=== PATIENT | female | born 1940 | race Caucasian/White ===

== ENCOUNTER 2018-10-14 19:51 | Emergency (ER) | payer MEDICARE, BC ==
[2018-10-14] MEDS ORDERED: Ondansetron 4 MG/2 ML SDV IVPUSH ONE (21:32)
[2018-10-14] MEDS ORDERED: Sodium Chloride 0.9% 1,000 ML IV SCH (21:45)
--- NOTE | 2018-10-14 22:03 | EDM.PDOC ---
ED HPI GENERAL MEDICAL PROBLEM - General Chief Complaint: Gastrointestinal Problem Stated Complaint: NAUSEA,VOMITING Time Seen by Provider: 10/14/18 21:25 Source of Information: Reports: Patient, Family History Limitations: Reports: No Limitations - History of Present Illness INITIAL COMMENTS - FREE TEXT/NARRATIVE: 78-year-old female who has had loose stools and intermittent vomiting for the past 48 hours. No pain, no fever or chills. She has chronic recurring nausea but it's usually very transient. No exposure to illness and no recent travel, no recent antibiotic. She had 3 episodes of diarrhea today and had emesis prior to leaving for the emergency room one hour ago. She has just minimal nausea at this time otherwise feels fine. She has not seen any blood in the stool, she thinks she may have a small amount of bloody emesis earlier today. History of cholecystectomy. Duration: Day(s): (2 days) Associated Symptoms: Reports: Loss of Appetite, Nausea/Vomiting, Other (Diarrhea ). Denies: Confusion, Chest Pain, Cough, Fever/Chills - Related Data Allergies Allergy/AdvReac Type Severity Reaction Status Date / Time No Known Allergies Allergy Verified 10/14/18 21:09 Home Meds: Home Meds Aspirin [Low Dose Aspirin EC] 1 tab PO DAILY 11/23/16 [History] Losartan [Cozaar] 1 tab PO DAILY 11/23/16 [History] Metoprolol Succinate [Toprol XL] 1 tab PO DAILY 11/23/16 [History] Sertraline [Zoloft] 1 tab PO DAILY 11/23/16 [History] Simvastatin [Zocor] 1 tab PO BEDTIME 11/23/16 [History] Donepezil HCl [Aricept] 10 mg PO BEDTIME 10/14/18 [History] Fluticasone/Vilanterol [Breo Ellipta 100-25 MCG Inhalation Kit] 1 dose IH DAILY 10/14/18 [History] Ipratropium [Atrovent HFA] 2 puff IH TID 10/14/18 [History] Past Medical History Cardiovascular History: Reports: High Cholesterol, Hypertension Respiratory History: Reports: COPD, Sleep Apnea Other Respiratory History: c-pap not using Gastrointestinal History: Reports: Cholelithiasis Other Neuro History: 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 Denies: Fever, Chills HEENT: Reports: No Symptoms Respiratory: Denies: Shortness of Breath Cardiovascular: Denies: Chest Pain GI/Abdominal: Reports: Diarrhea, Nausea, Vomiting. Denies: Abdominal Pain, Constipation : Reports: No Symptoms Skin: Reports: No Symptoms Neurological: Denies: Headache Psychiatric: Reports: No Symptoms ED EXAM, GI/ABD - Physical Exam Exam: See Below Exam Limited By: No Limitations General Appearance: Alert, No Apparent Distress Eyes: Bilateral: Normal Appearance Respiratory/Chest: No Respiratory Distress, Lungs Clear Cardiovascular: Regular Rate, Rhythm GI/Abdominal Exam: Soft, Non-Tender, Other (Somewhat decreased bowel sounds) Neurological: Alert, Oriented Psychiatric: Normal Affect, Normal Mood Skin Exam: Warm, Dry Course - Vital Signs Last Recorded V/S: Last Vital Signs Temp 99.1 F 10/14/18 21:08 Pulse 88 10/14/18 21:08 Resp 16 10/14/18 21:08 BP 149/67 H 10/14/18 21:08 Pulse Ox 92 L 10/14/18 21:08 - Orders/Labs/Meds Labs: Laboratory Tests 10/14/18 10/14/18 Range/Units 21:48 21:48 WBC 9.9 (4.5-11.0) K/uL RBC 4.77 (3.30-5.50) M/uL Hgb 14.5 (12.0-15.0) g/dL Hct 46.3 (36.0-48.0) % MCV 97 (80-98) fL MCH 30 (27-31) pg MCHC 31 L (32-36) % Plt Count 230 (150-400) K/uL Neut % (Auto) 88 H (36-66) % Lymph % (Auto) 7 L (24-44) % [place] % (Auto) 5 (2-6) % Eos % (Auto) 0 L (2-4) % Baso % (Auto) 0 (0-1) % Sodium 139 L (140-148) mmol/L Potassium 4.3 (3.6-5.2) mmol/L Chloride 103 (100-108) mmol/L Carbon Dioxide 25 (21-32) mmol/L Anion Gap 15.3 H (5.0-14.0) mmol/L BUN 24 H (7-18) mg/dL Creatinine 1.5 H (0.6-1.0) mg/dL Est Cr Clr Drug Dosing 25.81 mL/min Estimated GFR (MDRD) 34 L (>60) Glucose 138 H (74-106) mg/dL Calcium 9.3 (8.5-10.1) mg/dL Total Bilirubin 0.4 (0.2-1.0) mg/dL AST 18 (15-37) U/L ALT 20 (12-78) U/L Alkaline Phosphatase 97 (46-116) U/L Total Protein 7.8 (6.4-8.2) g/dL Albumin 3.2 L (3.4-5.0) g/dL Globulin 4.6 H (2.3-3.5) g/dL Albumin/Globulin Ratio 0.7 L (1.2-2.2) Meds: Medications Discontinued Medications Generic Name Dose Route Start Last Admin Trade Name Freq PRN Reason Stop Dose Admin Sodium Chloride 1,000 mls @ 1,000 mls/hr 10/14/18 21:45 10/14/18 21:59 Normal Saline IV 1,000 mls/hr ASDIRECTED ELVIRA Administration Ondansetron HCl 4 mg 10/14/18 21:32 10/14/18 21:59 Zofran IVPUSH 10/14/18 21:33 4 mg ONETIME ONE Administration - Re-Assessments/Exams Free Text/Narrative Re-Assessment/Exam: 10/14/18 22:02 An IV was started, the patient was given 4 mg of IV Zofran and 1 L of normal saline while awaiting results of a CBC and CMP. 10/14/18 22:36 Patient remained comfortable while in the emergency room without any additional emesis or diarrhea. CBC was normal, CMP showed evidence of dehydration with elevated BUN, creatinine and decreased GFR. Otherwise reassuring. Patient was given a full liter of normal saline, and discharged with 5 additional doses of sublingual Zofran. She can return if symptoms persist over the next several days. Departure - Departure Time of Disposition: 23:01 Disposition: Home, Self-Care 01 Clinical Impression: Gastroenteritis - Discharge Information Instructions: Dehydration, Adult, [id number] Referrals: Sania Zapata MD [Primary Care Provider] - Forms: ED Department Discharge Care Plan Goals: Increase activity and diet as tolerated. Concentrate on fluids and avoid dehydration. Use Zofran under your tongue up to 3 times a day for persistent nausea and vomiting. Consider rechecking in 2-3 days if not improving satisfactorily, or return anytime if worsening despite treatment.
== END 2018-10-14 23:02 | disposition home or self-care (01) ==
LOC: JP.ED 19:51
DX: K52.9 Noninfective gastroenteritis and colitis, unspecified (principal); I10 Essential (primary) hypertension; Z79.899 Other long term (current) drug therapy; Z98.890 Other specified postprocedural states; Z90.49 Acquired absence of other specified parts of digestive tract; Z79.82 Long term (current) use of aspirin; Z87.891 Personal history of nicotine dependence
CPT/HCPCS: 36415; 80053; 85025; 96361; 96374; 99283; J2405; J7030; 99284

== ENCOUNTER 2019-02-10 11:44 | Emergency (ER) | payer MEDICARE, BC ==
--- NOTE | 2019-02-10 15:52 | EDM.PDOC ---
ED HPI GENERAL MEDICAL PROBLEM - General Chief Complaint: Upper Extremity Injury/Pain Stated Complaint: SWOLLEN LT HAND, PAIN Time Seen by Provider: 02/10/19 15:52 Source of Information: Reports: Patient History Limitations: Reports: No Limitations - History of Present Illness INITIAL COMMENTS - FREE TEXT/NARRATIVE: pt arrived stating that she has a painful left hand. She has not had a injury. This started to swell about 2 days ago. The M_P joint of the middle finger is swollen and is tender. Onset: Other ( started 2 days ago) Duration: Hour(s): Location: Reports: Upper Extremity, Left Associated Symptoms: Reports: No Other Symptoms Left Hand Pain Score (Numeric/FACES): 1 - Related Data Allergies Allergy/AdvReac Type Severity Reaction Status Date / Time No Known Allergies Allergy Verified 02/10/19 14:29 Home Meds: Home Meds Losartan [Cozaar] 1 tab PO DAILY 11/23/16 [History] Metoprolol Succinate [Toprol XL] 1 tab PO DAILY 11/23/16 [History] Sertraline [Zoloft] 1 tab PO DAILY 11/23/16 [History] Donepezil HCl [Aricept] 10 mg PO BEDTIME 10/14/18 [History] Fluticasone/Vilanterol [Breo Ellipta 100-25 MCG Inhalation Kit] 1 dose IH DAILY 10/14/18 [History] Ipratropium [Atrovent HFA] 2 puff IH TID 10/14/18 [History] Past Medical History Cardiovascular History: Reports: High Cholesterol, Hypertension Respiratory History: Reports: COPD, Sleep Apnea Other Respiratory History: c-pap not using Gastrointestinal History: Reports: Cholelithiasis Other Neuro History: 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 Psychiatric History: Reports: Alzheimers Disease - Past Surgical History HEENT Surgical History: Reports: Adenoidectomy, Tonsillectomy GI Surgical History: Reports: Cholecystectomy Social & Family History - Tobacco Use Smoking Status *Q: Former Smoker Used Tobacco, but Quit: Yes Month/Year Tobacco Last Used: 15 years - Caffeine Use Caffeine Use: Reports: None - Recreational Drug Use Recreational Drug Use: No Review of Systems - Review of Systems Review Of Systems: See Below Constitutional: Reports: No Symptoms Eyes: Reports: No Symptoms Ears: Reports: No Symptoms Nose: Reports: No Symptoms Mouth/Throat: Reports: No Symptoms Respiratory: Reports: No Symptoms Cardiovascular: Reports: No Symptoms GI/Abdominal: Reports: No Symptoms Musculoskeletal: Reports: Other (painful left hand. ) ED EXAM, GENERAL - Physical Exam Exam: See Below Free Text/Narrative:: pt arrived with pain in left hand. This swollen and tender by the middle m-p joint. Exam Limited By: No Limitations General Appearance: Alert, Anxious Ears: Normal TMs Nose: Normal Inspection Extremities: Other (left hand is swollen and tender at the level of the left m-p --middle joint. ) Neurological: Alert, Oriented, Normal Cognition Course - Vital Signs Last Recorded V/S: Last Vital Signs Temp 35.7 C 02/10/19 14:28 Pulse 72 02/10/19 14:28 Resp 16 02/10/19 14:28 BP 191/80 H 02/10/19 14:28 Pulse Ox 96 02/10/19 14:28 - Orders/Labs/Meds Orders: Active Orders 24 hr Category Date Time Status Hand Comp Min 3V Lt [CR] Stat Exams 02/10/19 15:49 Taken Labs: Laboratory Tests 02/10/19 02/10/19 Range/Units 16:04 16:04 WBC 8.5 (4.5-11.0) K/uL RBC 4.71 (3.30-5.50) M/uL Hgb 14.4 (12.0-15.0) g/dL Hct 45.8 (36.0-48.0) % MCV 97 (80-98) fL MCH 31 (27-31) pg MCHC 31 L (32-36) % Plt Count 294 (150-400) K/uL Neut % (Auto) 67 H (36-66) % Lymph % (Auto) 24 (24-44) % [place] % (Auto) 7 H (2-6) % Eos % (Auto) 2 (2-4) % Baso % (Auto) 1 (0-1) % Uric Acid 5.1 (2.6-6.2) mg/dL Meds: Medications Discontinued Medications Generic Name Dose Route Start Last Admin Trade Name Freq PRN Reason Stop Dose Admin Triamcinolone Acetonide 60 mg 02/10/19 16:29 Kenalog-40 IM 02/10/19 16:30 ASDIRECTED ONE - Re-Assessments/Exams Free Text/Narrative Re-Assessment/Exam: 02/10/19 16:40 pt had a normal uric acid. She had a normal wbc. A xray was obtained and there was no sig destruction. Departure - Departure Time of Disposition: 16:34 Disposition: Home, Self-Care 01 Condition: Fair Clinical Impression: Inflammatory arthritis - Discharge Information Referrals: Sania Zapata MD [Primary Care Provider] - Forms: ED Department Discharge Care Plan Goals: soak hand in warm water bid, follow with a cool pack, elevate hand, naprosyn 500mg bid with food. - My Orders Last 24 Hours: My Active Orders 02/10/19 15:49 Hand Comp Min 3V Lt [CR] Stat - Assessment/Plan Last 24 Hours: My Active Orders 02/10/19 15:49 Hand Comp Min 3V Lt [CR] Stat
[2019-02-10] MEDS ORDERED: Triamcinolone Acetonide 40 MG/ML 1 ML MDV IM ONE (16:29)
--- NOTE | 2019-02-10 16:45 | CRLCR ---
Indication: Left hand pain and swelling Technique: Left hand 3 views. Comparison: None Findings: Bones: Alignment is normal. No fractures or bone lesions. Generalized osteopenia. Joint spaces: Arthritic changes are present throughout the IP joints, most severe in the distal IP joint in the 2nd finger. No periarticular erosions or nodules. Soft tissues: Unremarkable. Impression: Osteoarthritis present throughout the IP joints. No other acute or specific finding to explain pain. Dictated by Israel Boyd MD @ 02/10/2019 4:43:53 PM Dictated by: Israel Boyd MD @ 02/10/2019 16:43:57 (Electronically Signed)
== END 2019-02-10 16:57 | disposition home or self-care (01) ==
LOC: JP.ED 11:44
DX: M19.042 Primary osteoarthritis, left hand (principal); I10 Essential (primary) hypertension; J44.9 Chronic obstructive pulmonary disease, unspecified; G30.9 Alzheimer's disease, unspecified; F02.80 Dementia in other diseases classified elsewhere, unspecified severity, without behavioral disturbance, psychotic disturbance, mood disturbance, and anxiety; Z87.891 Personal history of nicotine dependence; Z79.51 Long term (current) use of inhaled steroids; Z79.899 Other long term (current) drug therapy
CPT/HCPCS: 36415; 73130-LT; 84550; 85025; 96372; 99283-25; J3301

== ENCOUNTER 2020-07-12 11:35 | Emergency (ER) | payer MEDICARE, BC ==
--- NOTE | 2020-07-12 12:05 | EDM.PDOC ---
ED HPI GENERAL MEDICAL PROBLEM - General Chief Complaint: Chest Pain Stated Complaint: CHEST PAINS Time Seen by Provider: 07/12/20 12:04 Source of Information: Reports: Patient, Family, RN Notes Reviewed History Limitations: Reports: Physical Impairment - History of Present Illness INITIAL COMMENTS - FREE TEXT/NARRATIVE: 80-year-old female presents emergency department today with her , she has known history of Alzheimer's so difficult to obtain history from her. Per report from her she did have an episode of chest pain lasted about 45 minutes happened at 930 this morning this was immediately after breakfast and ingestion of her regular medications. She states she was short of breath and flushed. She has no known cardiac history she does have an extensive tobacco use history and does have COPD she does not use tobacco products since 2001, chest pain-free at this time - Related Data Allergies Allergy/AdvReac Type Severity Reaction Status Date / Time No Known Allergies Allergy Verified 07/12/20 11:46 Home Meds: Home Meds Losartan [Cozaar] 1 tab PO DAILY 11/23/16 [History] Metoprolol Succinate [Toprol XL] 1 tab PO DAILY 11/23/16 [History] Sertraline [Zoloft] 1 tab PO DAILY 11/23/16 [History] Donepezil HCl [Aricept] 10 mg PO BEDTIME 10/14/18 [History] Fluticasone/Vilanterol [Breo Ellipta 100-25 MCG Inhalation Kit] 1 dose IH DAILY 10/14/18 [History] Albuterol [Ventolin HFA] 1 - 2 puff IN Q6H PRN 07/12/20 [History] Past Medical History Cardiovascular History: Reports: High Cholesterol, Hypertension Respiratory History: Reports: COPD, Sleep Apnea Other Respiratory History: c-pap not using Gastrointestinal History: Reports: Cholelithiasis Other Neuro History: 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 Psychiatric History: Reports: Alzheimers Disease - Past Surgical History HEENT Surgical History: Reports: Adenoidectomy, Tonsillectomy GI Surgical History: Reports: Cholecystectomy Social & Family History - Tobacco Use Tobacco Use Status *Q: Former Tobacco User Used Tobacco, but Quit: Yes Month/Year Tobacco Last Used: 19 - Caffeine Use Caffeine Use: Reports: None ED ROS GENERAL - Review of Systems Review Of Systems: See Below Constitutional: Reports: No Symptoms HEENT: Reports: No Symptoms Respiratory: Reports: Shortness of Breath Cardiovascular: Reports: Chest Pain GI/Abdominal: Reports: No Symptoms : Reports: No Symptoms ED EXAM, GENERAL - Physical Exam Exam: See Below Exam Limited By: Physical Impairment General Appearance: Alert, WD/WN, No Apparent Distress Respiratory/Chest: No Respiratory Distress, No Accessory Muscle Use, Chest Non- Tender, Decreased Breath Sounds Cardiovascular: Regular Rate, Rhythm, No Murmur GI/Abdominal: Soft, Non-Tender Extremities: No Pedal Edema #1 Interpretation EKG Date: 07/12/20 Time: 11:42 Rhythm: NSR [place]: Normal P-Wave: Present QRS: Normal ST-T: Normal QT: Normal Comparison: NA - No Prior EKG Course - Vital Signs Last Recorded V/S: Last Vital Signs Temp 96.8 F L 07/12/20 11:43 Pulse 68 07/12/20 11:43 Resp 14 07/12/20 11:43 BP 151/59 H 07/12/20 11:43 Pulse Ox 98 07/12/20 11:43 - Orders/Labs/Meds Orders: Active Orders 24 hr Category Date Time Status Cardiac Monitoring [RC] .As Directed Care 07/12/20 12:09 Active EKG Documentation Completion [RC] ASDIRECTED Care 07/12/20 12:10 Active EKG 12 Lead [EK] Stat Ther 07/12/20 12:10 Ordered Labs: Laboratory Tests 07/12/20 07/12/20 Range/Units 12:20 12:20 WBC 8.8 (4.5-11.0) K/uL RBC 4.57 (3.30-5.50) M/uL Hgb 13.7 (12.0-15.0) g/dL Hct 43.9 (36.0-48.0) % MCV 96 (80-98) fL MCH 30 (27-31) pg MCHC 31 L (32-36) % Plt Count 262 (150-400) K/uL Neut % (Auto) 67 H (36-66) % Lymph % (Auto) 22 L (24-44) % [place] % (Auto) 8 H (2-6) % Eos % (Auto) 2 (2-4) % Baso % (Auto) 1 (0-1) % Sodium 145 (140-148) mmol/L Potassium 4.3 (3.6-5.2) mmol/L Chloride 108 (100-108) mmol/L Carbon Dioxide 27 (21-32) mmol/L Anion Gap 10.3 (5.0-14.0) mmol/L BUN 22 H (7-18) mg/dL Creatinine 1.4 H (0.6-1.0) mg/dL Est Cr Clr Drug Dosing 26.19 mL/min Estimated GFR (MDRD) 36 L (>60) Glucose 106 (74-106) mg/dL Calcium 9.1 (8.5-10.1) mg/dL Total Bilirubin 0.3 (0.2-1.0) mg/dL AST 11 L (15-37) U/L ALT 16 (12-78) U/L Alkaline Phosphatase 104 (46-116) U/L Troponin I < 0.017 (0.000-0.056) ng/mL Total Protein 7.1 (6.4-8.2) g/dL Albumin 3.0 L (3.4-5.0) g/dL Globulin 4.1 H (2.3-3.5) g/dL Albumin/Globulin Ratio 0.7 L (1.2-2.2) Meds: Medications Discontinued Medications Generic Name Dose Route Start Last Admin Trade Name Freq PRN Reason Stop Dose Admin Aspirin 324 mg 07/12/20 12:09 07/12/20 13:07 Aspirin 81 Mg Tab.Chew PO 07/12/20 12:10 Not Given ONETIME ONE Departure - Departure Time of Disposition: 14:01 Disposition: Home, Self-Care 01 Condition: Fair Clinical Impression: Atypical chest pain Instructions: Nonspecific Chest Pain, Adult, [place]azs Referrals: Tiny Gomez MD [Primary Care Provider] - Forms: ED Department Discharge Additional Instructions: On your chest x-ray there was a possibility of pneumonia, however you do not have symptoms at this time, a prescription for an antibiotic is provided if you develop any symptoms please start the antibiotic otherwise follow-up with your primary care next week for further evaluation Sepsis Event Note (ED) - Evaluation Sepsis Screening Result: No Definite Risk - Focused Exam Vital Signs: Vital Signs Temp Pulse Resp BP Pulse Ox 07/12/20 11:43 96.8 F L 68 14 151/59 H 98 - My Orders Last 24 Hours: My Active Orders 07/12/20 12:09 Cardiac Monitoring [RC] .As Directed 07/12/20 12:10 EKG Documentation Completion [RC] ASDIRECTED EKG 12 Lead [EK] Stat - Assessment/Plan Last 24 Hours: My Active Orders 07/12/20 12:09 Cardiac Monitoring [RC] .As Directed 07/12/20 12:10 EKG Documentation Completion [RC] ASDIRECTED EKG 12 Lead [EK] Stat Plan: Assessment Acuity = acute Site and laterality = possible community-acquired pneumonia producing atypical chest pain Etiology = bacterial cause Manifestations = none Location of injury = Home Lab values = CBC CMP unremarkable chest x-ray does show patchy infiltrate perihilar region right side Plan I did discuss the possibility of a pneumonia with patient and family they elected to do watchful waiting but however did take a prescription for azithromycin Z-Anderson and are going to follow-up with her primary care next week however if she develops any more symptoms fever cough she will start the antibiotics immediately This note was dictated using [employer] voice recognition software please call with any questions on syntax or grammar.
[2020-07-12] MEDS ORDERED: Aspirin 81 MG Tab.Chew PO ONE (12:09)
--- NOTE | 2020-07-12 12:58 | CR ---
CHEST: Portable 07/12/2020 CLINICAL HISTORY:Chest pain COMPARISON:CT 2018 FINDINGS: Heart size and pulmonary vascularity are normal. There are atherosclerotic changes in the aorta.. There is some patchy density in the right infrahilar region. This may be within the medial segment of the right middle lobe. Right lower lobe is not excluded. There are no effusions IMPRESSION: Tachycardia density in the right infrahilar region is suspect for pneumonic infiltrate. If clinically relevant two-view chest should be considered.
== END 2020-07-12 14:11 | disposition home or self-care (01) ==
LOC: JP.ED 11:35
DX: R07.89 Other chest pain (principal); I10 Essential (primary) hypertension; J44.9 Chronic obstructive pulmonary disease, unspecified; G30.9 Alzheimer's disease, unspecified; F02.80 Dementia in other diseases classified elsewhere, unspecified severity, without behavioral disturbance, psychotic disturbance, mood disturbance, and anxiety; Z87.891 Personal history of nicotine dependence; Z79.899 Other long term (current) drug therapy
CPT/HCPCS: 36415; 71045; 71045-26; 80053; 84484; 85025; 93005; 99285-25

== ENCOUNTER 2021-07-25 15:55 | Emergency (ER) | payer MEDICARE, BC ==
[2021-07-25 17:13] LABS: TROPONIN I HIGH SENSITIVITY 7.7 pg/mL (<=60.3)
== END 2021-07-25 18:10 | disposition home or self-care (01) ==
LOC: JP.ED 15:55
DX: G30.9 Alzheimer's disease, unspecified (principal); F02.80 Dementia in other diseases classified elsewhere, unspecified severity, without behavioral disturbance, psychotic disturbance, mood disturbance, and anxiety; F82 Specific developmental disorder of motor function; Z79.899 Other long term (current) drug therapy; Z87.891 Personal history of nicotine dependence
CPT/HCPCS: 36415; 70450; 80053; 83605; 84484; 85025; 99284-25; 99285

== ENCOUNTER 2021-09-25 15:19 | Emergency (ER) | payer OTHER, MEDICARE, BC | END 2021-09-25 17:05 | disposition home or self-care (01) | LOC: JP.ED 15:19 | DX: S80.01XA Contusion of right knee, initial encounter (principal); I10 Essential (primary) hypertension; Z87.891 Personal history of nicotine dependence; Z79.899 Other long term (current) drug therapy; V89.2XXA Person injured in unspecified motor-vehicle accident, traffic, initial encounter | CPT/HCPCS: 73562-26-RT; 73562-RT; 99283 ==

== ENCOUNTER 2021-09-27 15:20 | Emergency (ER) | payer OTHER, MEDICARE, BC ==
[2021-09-27] MEDS ORDERED: Bacitracin Oint 1 GM U/D Packet TOP ONE (17:29)
[2021-09-27] MEDS ORDERED: Cephalexin 250 MG Cap PO ONE (17:30)
[2021-09-27 17:57] LABS: ESTIMATED GFR 46 mL/min (>60)
== END 2021-09-27 18:15 | disposition home or self-care (01) ==
LOC: JP.ED 15:20
DX: L08.9 Local infection of the skin and subcutaneous tissue, unspecified (principal); S80.01XA Contusion of right knee, initial encounter; E78.00 Pure hypercholesterolemia, unspecified; I10 Essential (primary) hypertension; Z79.899 Other long term (current) drug therapy; Z79.82 Long term (current) use of aspirin
CPT/HCPCS: 36415; 80053; 81001; 85025; 99281; 99283; A9270-GY